=== PATIENT | male | born 1960 | race African-American/Black ===

== ENCOUNTER 2021-10-04 18:45 | Emergency (ER) | payer MEDICAID ==
[~2021-10-04] VITALS: Ht 180.3 cm; Wt 82.0 kg
[2021-10-04] MEDS ORDERED: SODIUM CHLORIDE 0.9% 1,000 ML IV ONE (19:15)
[2021-10-04 20:19] LABS: BASOPHILS % 0.4 % (0.0-2.0); EOSINOPHILS % 0.6 % (0.0-5.0); HEMATOCRIT. 44.5 % (42.0-52.0); HEMOGLOBIN. 14.2 g/dL (14.0-18.0); LYMPHOCYTES % 21.7 % (20.0-50.0); MEAN CORPUSCULAR HEMOGLOBIN 29.9 pg (28.0-32.0); MEAN CORPUSCULAR VOLUME 93.5 fL (80.0-94.0); MEAN PLATELET VOLUME 8.9 fl (7.4-10.4); MONOCYTES % 7.2 % (2.0-8.0); NEUTROPHILS % 70.1 % (40.0-76.0); PLATELET 169 x1000/uL (130-400); RED BLOOD CELL COUNT 4.76 mill/uL (4.7-6.1); RED CELL DISTRIBUTION WIDTH 15.5 % (11.6-14.6)
[2021-10-04 20:25] LABS: CHLORIDE 104 mEq/L (98-107)
[2021-10-04 20:34] LABS: CREATINE KINASE 258 IU/L (39-308); ETHANOL BLOOD 24 mg/dL
[2021-10-04] MEDS ORDERED: DILTIAZEM HCL 5MG/ML 5ML VIAL IV ONE (22:00)
[2021-10-04] MEDS ORDERED: DILTIAZEM HCL 30MG TABLET PO ONE (22:45)
[2021-10-05] MEDS ORDERED: DILT180T11 MT (00:30)
[2021-10-05] MEDS ORDERED: ASPI-1497 MT (01:03)
[2021-10-05 01:21] VITALS: BP 126/62
== END 2021-10-05 03:16 | disposition home or self-care (01) ==
LOC: ER 18:45 → EDBD 18:45 → ER 10-05 03:16
DX: I48.91 Unspecified atrial fibrillation (principal); R41.82 Altered mental status, unspecified
CPT/HCPCS: 36415; 70450; 71045; 80053; 80307; 80320; 80329; 82140; 82550; 83605; 83690; 83880; 84443; 84484; 85025; 96361; 96374; 99285; J3490; J7030; G0480